=== PATIENT | female | born 1980 | race Caucasian/White ===

== ENCOUNTER → 2019-03-03 | Outpatient (CLI) | payer BC | LOC: LAB FS 08:18 | PROVIDERS: ATTEND Obstetrics & Gynecology | DX: Z34.90 Encounter for supervision of normal pregnancy, unspecified, unspecified trimester (principal); Z3A.00 Weeks of gestation of pregnancy not specified | CPT/HCPCS: 36415; 84702 ==

== ENCOUNTER → 2019-03-05 | Outpatient (CLI) | payer BC ==
[2019-03-05 14:13] LABS: BASOPHILS % (AUTO) 1 % (0-10); EOSINOPHILS % (AUTO) 2 % (0-10); HEMATOCRIT 42 % (35-52); HEMOGLOBIN 13.5 G/DL (11.5-16.0); LYMPHOCYTES % (AUTO) 38 % (12-44); MEAN CORPUSCULAR HEMOGLOBIN 29 PG (25-34); MEAN CORPUSCULAR HGB CONC 33 G/DL (32-36); MEAN CORPUSCULAR VOLUME 90 FL (80-99); MEAN PLATELET VOLUME 10.2 FL (7.4-10.4); MONOCYTES % (AUTO) 5 % (0-12); NEUTROPHILS % (AUTO) 54 % (42-75); PLATELET COUNT 283 10^3/uL (130-400); RED CELL DISTRIBUTION WIDTH 12.9 % (10.0-14.5); WHITE BLOOD COUNT 11.1 10^3/uL (4.3-11.0)
[2019-03-05 14:14] LABS: BASOPHILS # (AUTO) 0.1 10^3/uL (0.0-0.1); EOSINOPHILS # (AUTO) 0.2 10^3/uL (0.0-0.3); LYMPHOCYTES # (AUTO) 4.2 X 10^3 (1.0-4.0); MONOCYTES # (AUTO) 0.6 X 10^3 (0.0-1.0)
== END ==
LOC: LAB FS 13:51
PROVIDERS: ATTEND Family Medicine
DX: O03.9 Complete or unspecified spontaneous abortion without complication (principal); Z3A.00 Weeks of gestation of pregnancy not specified
CPT/HCPCS: 36415; 85025; 86900; 86901

== ENCOUNTER → 2019-03-05 | Outpatient (CLI) | payer BC | LOC: LAB FS 12:21 | PROVIDERS: ATTEND Obstetrics & Gynecology | DX: Z34.90 Encounter for supervision of normal pregnancy, unspecified, unspecified trimester (principal); Z3A.00 Weeks of gestation of pregnancy not specified | CPT/HCPCS: 36415; 84702 ==

== ENCOUNTER 2019-12-01 13:48 | Inpatient (IN) | payer BC ==
[~2019-12-01] VITALS: Ht 170.2 cm; Wt 132.4 kg
[2019-12-01] VITALS (49 sets, daily range): BP systolic 88–133; BP diastolic 51–73
--- NOTE | 2019-12-01 13:50 | NUR ---
Arrived to unit ambulates self for induction of labor. Wt obtained and to room 320. Gowned and urine sample obtained. To bed and oriented to room, call light and surroundings. bed controls and call light reviewed. plan of care reviewed with pt.
[2019-12-01] MEDS ORDERED: CATHETER FLUSH 10 ML SYR IV SCH (14:00)
[2019-12-01] MEDS ORDERED: OXYTOCIN PRE-MIX DRIP 500 ML IV ONE (14:29)
[2019-12-01] MEDS ORDERED: AMPICILLIN FOR IV USE 2,000 MG in WATER (STERILE) FOR INJECTION 14.8 ML IV ONE (14:30)
--- NOTE | 2019-12-01 14:30 | NUR ---
Pt was suppose to deliver in [place] 12/01, but [place] was unable to do this elective induction. Dr Kuo made arrangements to be induced here in [place] today.Having a boy that she will breast feed and have circumcised. Was planning on using Dr Langford as pulmonary physician for after hospitalization. Last son born 12 yrs ago. Mother at bedside, at home - had hand surgery.
[2019-12-01] MEDS ORDERED: OXYTOCIN PRE-MIX DRIP 500 ML IV SCH (14:32)
[2019-12-01 14:36] LABS: BASOPHILS % (AUTO) 0 % (0-10); EOSINOPHILS % (AUTO) 0 % (0-10); HEMATOCRIT 35 % (35-52); HEMOGLOBIN 11.9 G/DL (11.5-16.0); LYMPHOCYTES # (AUTO) 2.5 X 10^3 (1.0-4.0); LYMPHOCYTES % (AUTO) 21 % (12-44); MEAN CORPUSCULAR HEMOGLOBIN 30 PG (25-34); MEAN CORPUSCULAR HGB CONC 34 G/DL (32-36); MEAN CORPUSCULAR VOLUME 88 FL (80-99); MEAN PLATELET VOLUME 11.5 FL (7.4-10.4); MONOCYTES # (AUTO) 0.6 X 10^3 (0.0-1.0); MONOCYTES % (AUTO) 5 % (0-12); NEUTROPHILS # (AUTO) 8.7 X 10^3 (1.8-7.8); NEUTROPHILS % (AUTO) 74 % (42-75); PLATELET COUNT 195 10^3/uL (130-400); WHITE BLOOD COUNT 11.9 10^3/uL (4.3-11.0)
[2019-12-01] MEDS: D5 LR IV SOLUTION 1,000 ML IV SCH ×2 (14:42→22:33)
[2019-12-01] MEDS ORDERED: LACTATED RINGERS 1,000 ML IV SCH (15:15)
[2019-12-01] MEDS ORDERED: FOLI0.4T2 PO (15:23)
[2019-12-01] MEDS ORDERED: PREN1TAB19 PO (15:23)
[2019-12-01] MEDS ORDERED: fentaNYL 2 mcg/ml BUPIVA 0.125 100 ML ONE (15:31)
--- NOTE | 2019-12-01 15:38 | NUR ---
Bill Bradford STOVE TENDER notified per phone of pt's request for epidural
[2019-12-01] MEDS ORDERED: fentaNYL INJECTION 100 MCG/2 ML AMP ONE (16:06)
[2019-12-01] MEDS: AMPICILLIN FOR IV USE 1,000 MG in WATER (STERILE) FOR INJECTION 7.4 ML IV SCH ×2 (18:56→22:33)
--- NOTE | 2019-12-01 21:38 | History & Physical-OB/GYN ---
History of Present Illness History of Present Illness Reason for visit/HPI Ms. Agrawal, A2 at 39 weeks, presents to the hospital for Pitocin Induction of Labor Date of Admission Dec 01, 2019 at 13:48 Date Seen by a Provider: Dec 01, 2019 Time Seen by a Provider: 21:10 I consulted on this patient on 12/01/19 21:32 Attending Physician Jordan Kuo DO Admitting Physician Jordan Kuo DO Consult Allergies and Home Medications Allergies Coded Allergies: No Known Drug Allergies (Unverified , 12/01/19) Home Medications Folic Acid 0.4 Mg Tablet, 0.4 MG PO DAILY, (Reported) Vit/Iron Fumarate/FA 1 Each Tablet, 1 EACH PO DAILY, (Reported) Patient Home Medication List Home Medication List Reviewed: Yes Past [id number] Hx Patient Social History Marrital Status: Number of Children: 1 Number of living children: 1 Employed/Student: employed Alcohol Use: Denies Use Recreational Drug Use: No Smoking Status: Never a Smoker Physical Abuse Screen: No Sexual Abuse: No Recent Foreign Travel: No Contact w/other who traveled: No Recent Infectious Disease Expo: No Surgeries Yes Abdominal (Gastric Sleeve), Adenoidectomy, Bladder Surgery, Gallbladder, Tonsillectomy Respiratory No Cardiovascular No Neurological No Reproductive System : Yes Expected Date of Delivery: Dec 08, 2019 Hx : 4 Hx Para: 1 Hx Total # of Abortions (Spona: 2 Hx Reproductive Disorders: No Sexually Transmitted Disease: No HIV/AIDS: No Genitourinary Yes Musculoskeletal No Endocrine History of Endocrine Disorders: Yes (Obesity) HEENT History of HEENT Disorders: No Cancer No Psychosocial Behavioral Health Disorders: Anxiety Family Medical History Family Hx: Patient reports no known family medical history. Review of Systems Constitutional: see HPI Physical Exam Physical Exam Vital Signs Vital Signs Date Time Temp Pulse Resp B/P (MAP) Pulse Ox O2 Delivery O2 Flow Rate FiO2 12/01/19 21:10 67 101/56 (71) 98 Room Air 12/01/19 20:55 63 106/61 (76) 98 Room Air 12/01/19 20:40 72 99/54 (69) 98 Room Air 12/01/19 20:25 61 102/54 (70) 98 Room Air 12/01/19 20:10 72 97/55 (69) 97 Room Air 12/01/19 19:55 56 96/54 (68) 97 Room Air 12/01/19 19:40 63 99/54 (69) 97 Room Air 12/01/19 19:25 65 88/51 (63) 99 Room Air 12/01/19 19:10 36.6 60 102/57 (72) 98 Room Air 12/01/19 19:00 64 107/64 (78) 98 12/01/19 18:45 60 106/57 (73) 98 Room Air 12/01/19 18:30 66 95/52 (66) 97 Room Air 12/01/19 18:15 73 113/65 (81) 97 Room Air 12/01/19 18:00 67 109/63 (78) 98 Room Air 12/01/19 17:45 66 112/53 (72) 96 Room Air 12/01/19 17:30 68 121/55 (77) 98 12/01/19 17:15 84 109/66 (80) 98 Room Air 12/01/19 17:10 73 109/60 (76) 98 Room Air 12/01/19 17:05 78 108/59 (75) 98 Room Air 12/01/19 17:00 67 109/57 (74) 98 Room Air 12/01/19 16:58 68 95/54 (68) 98 12/01/19 16:53 76 133/61 (85) 12/01/19 16:50 76 125/60 (81) 12/01/19 16:46 68 130/68 (88) 99 12/01/19 16:43 80 20 127/72 (90) 99 12/01/19 16:40 72 127/69 (88) 99 12/01/19 16:38 75 130/70 (90) 100 Room Air 12/01/19 16:35 70 122/70 (87) Room Air 12/01/19 16:33 76 119/73 (88) 100 Room Air 12/01/19 16:30 66 113/67 (82) 12/01/19 16:26 64 20 122/68 (86) 100 Room Air 12/01/19 16:22 71 123/71 (88) 100 Room Air 12/01/19 16:06 72 116/63 (80) 99 Room Air 12/01/19 16:00 65 115/58 (77) 99 Room Air 12/01/19 15:45 64 116/58 (77) Room Air 12/01/19 15:30 56 101/58 (72) Room Air 12/01/19 15:15 65 16 109/55 (73) Room Air 12/01/19 14:05 37.0 78 18 97 Room Air 12/01/19 14:05 37.0 77 16 121/72 (88) 98 Room Air Capillary Refill : Less Than 3 Seconds Labs Laboratory Tests 12/01/19 14:20: White Blood Count 11.9H, Red Blood Count 3.93L, Hemoglobin 11.9, Hematocrit 35, Mean Corpuscular Volume 88, Mean Corpuscular Hemoglobin 30, Mean Corpuscular Hemoglobin Concent 34, Red Cell Distribution Width 12.9, Platelet Count 195, Mean Platelet Volume 11.5H, Neutrophils (%) (Auto) 74, Lymphocytes (%) (Auto) 21, Monocytes (%) (Auto) 5, Eosinophils (%) (Auto) 0, Basophils (%) (Auto) 0, Neutrophils # (Auto) 8.7H, Lymphocytes # (Auto) 2.5, Monocytes # (Auto) 0.6, Eosinophils # (Auto) 0.0, Basophils # (Auto) 0.0 General Appearance: No Apparent Distress, WD/WN Respiratory: Lungs Clear, Normal Breath Sounds, No Respiratory Distress Cardiovascular: Regular Rate, Rhythm, No Murmur Abdominal: normal bowel sounds, non tender Labia: WNL Vagina: WNL Cervix: WNL Cervix OS: open Uterus: WNL, Enlarged (Gravid) Extremity: Normal Inspection, Non Tender, No Calf Tenderness Assessment/Plan Assessment and Plan Assessment: Intrauterine at 39 weeks 2. GBS Positive 3. Advanced Maternal Age Plan: Pitocin Induction of Labor. Ampicillin for GBS. AROM. Epidural for antepartum pain management. Vaginal delivery expected Admission Diagnosis Admission Status: Inpatient Order (span 2 midnights) Reason for Inpatient Admission: Pitocin Induction of Labor Clinical Quality Measures DVT/VTE Risk/Contraindication: Risk Factor Score Per Nursin RFS Level Per Nursing on Admit: 1=Low/No VTE PPX JORDAN KUO DO Dec 01, 2019 21:38
[2019-12-02] VITALS (22 sets, daily range): BP systolic 96–128; BP diastolic 51–75
[2019-12-02] MEDS ORDERED: fentaNYL 2 mcg/ml BUPIVA 0.125 100 ML ONE (00:25)
[2019-12-02] MEDS: AMPICILLIN FOR IV USE 1,000 MG in WATER (STERILE) FOR INJECTION 7.4 ML IV SCH (02:39)
--- NOTE | 2019-12-02 02:57 | NUR ---
cord clamped by dr roman cut by family. 030 spontaneous vaginal delivery of intact placenta by dr roman. pitocin increased to 999ml/hr to finish current bag hanging. placenta taken to lab. [address] roman of 2nd degree tear with 3.0 vicryl. [id number] roman performing fundal massage. new chucks and vpad to perineum after pericare performed by dr roman. assisted out of stirrups. epidural off. 031 new gown and repositioned to high fowlers. 0315 epidural catheter removed by this Rn. tip intact. 0319 fundal massage by this RN. U/1 moderate clot expressed. moderate flow. continuing to monitor. 0321 new bag of pitocin hung see eMAR.
[2019-12-02] MEDS ORDERED: OXYTOCIN PRE-MIX DRIP 500 ML IV SCH (03:20)
[2019-12-02] MEDS ORDERED: MEASLES,MUMPS,RUBELLA 1 EA INJ SQ ONE (03:30)
[2019-12-02] MEDS ORDERED: DIBUCAINE (NUPERCAINAL) 1% OINT 30 GM TOP PRN (03:30)
[2019-12-02] MEDS ORDERED: BENZOCAINE/MENTHOL (DERMOPLAST) 60 ML CAN TP PRN (03:30)
[2019-12-02] MEDS ORDERED: TETANUS,DIPTH,PERTUSS P/F (BOOSTRIX) 0.5 ML VIAL IM ONE (03:30)
[2019-12-02] MEDS ORDERED: WITCH HAZEL(TUCKS) 40 EA JAR TOP PRN (03:30)
--- NOTE | 2019-12-02 03:30 | NUR ---
sandwich tray given. denies pain or need. continuing to monitor. 0350 request assistance with . ffu/0.
--- NOTE | 2019-12-02 03:31 | OB Labor & Delivery Record ---
Vag Delivery Note Vag Delivery Note Date of Delivery: 12/02/19 Preoperative Diagnosis: Idalia Agrawal is a (37 /Para 4 / 1, Gestational Age (wks)39 2/7 weeks with [GBS Positive and Advanced Maternal Age] Postoperative Diagnosis: Same Surgeon: SIMEON MASON Rail Car Repairman: [None] Anesthesia: [Epidural] Delivery Type: [Normal Spontaneous Vaginal Delivery with Second Degree Perineal Laceration and Standard Repair] Findings: [] Viable [Male] , apgars [9, 9], weight [8 lbs 5 oz] Lacerations: Second degree perineal laceration Intact placenta with 3 vessel cord. No nuchal cord, body cord or shoulder dystocia Estimated Blood Loss: [300] ml Complications: None Condition: Stable Description of Procedure: The patient is a 39 year old female who presented [Pitocin Induction of Labor]. She was admitted and informed consent was obtained. Her labor course was unremarkable. She progressed to complete dilatation and began to push. She was then set up for delivery. The 's head was delivered atraumatically in the [SILAS] position. The shoulders and remainder of the infant's body were then delivered without difficulty. Upon delivery, the head was held below the level of the perineum and the mouth and nares were bulb suctioned. The cord was doubly clamped and cut and the infant was handed off to the pediatric staff. An intact placenta with 3-vessel cord delivered via Geov[place] and there was found to be minimal bleeding.~ Vigorous fundal massage was performed and the fundus was found to be firm. IV oxytocin was given. Examination of the vagina and perineum revealed a [second degree perineal] laceration repaired in the usual fashion with 3-0 vicryl suture. Following the repair, sponge, instrument and needle counts were correct. Mom and baby were both in stable condition in the labor suite. Vitals - Labs Vital Signs - I&O Vital Signs Date Time Temp Pulse Resp B/P (MAP) Pulse Ox O2 Delivery O2 Flow Rate FiO2 12/02/19 00:40 54 108/60 (76) 98 Room Air 12/02/19 00:25 62 101/59 (73) 97 Room Air 12/02/19 00:10 70 116/64 (81) 96 Room Air 12/01/19 23:55 63 106/57 (73) 97 Room Air 9/9/20 23:40 60 104/56 (72) 97 Room Air 9/9/20 23:25 58 104/63 (77) 97 Room Air 9/9/20 23:10 60 107/62 (77) 97 Room Air 9/9/20 22:55 52 103/59 (74) 98 Room Air 9/9/20 22:40 66 107/58 (74) 99 Room Air 9/9/20 22:25 36.6 63 111/64 (80) 97 Room Air 9/9/20 22:10 66 103/60 (74) 97 Room Air 9/9/20 21:55 61 115/57 (76) 98 Room Air 9/9/20 21:40 67 101/57 (72) 98 Room Air 9/9/20 21:25 61 108/58 (75) 98 Room Air /9/20 21:10 67 101/56 (71) 98 Room Air /9/20 20:55 63 106/61 (76) 98 Room Air /9/20 20:40 72 99/54 (69) 98 Room Air 11/30/20 20:25 61 102/54 (70) 98 Room Air /9/20 20:10 72 97/55 (69) 97 Room Air /9/20 19:55 56 96/54 (68) 97 Room Air 11/30/20 19:40 63 99/54 (69) 97 Room Air /9/20 19:25 65 88/51 (63) 99 Room Air //20 19:10 36.6 60 102/57 (72) 98 Room Air 9/20 19:00 64 107/64 (78) 98 9/9/20 18:45 60 106/57 (73) 98 Room Air 9/9/20 18:30 66 95/52 (66) 97 Room Air 9/9/20 18:15 73 113/65 (81) 97 Room Air 9/9/20 18:00 67 109/63 (78) 98 Room Air 9/9/20 17:45 66 112/53 (72) 96 Room Air 9/9/20 17:30 68 121/55 (77) 98 9/9/20 17:15 84 109/66 (80) 98 Room Air 9/9/20 17:10 73 109/60 (76) 98 Room Air 9/9/20 17:05 78 108/59 (75) 98 Room Air 12/01/19 17:00 67 109/57 (74) 98 Room Air 12/01/19 16:58 68 95/54 (68) 98 12/01/19 16:53 76 133/61 (85) 12/01/19 16:50 76 125/60 (81) 12/01/19 16:46 68 130/68 (88) 99 12/01/19 16:43 80 20 127/72 (90) 99 12/01/19 16:40 72 127/69 (88) 99 12/01/19 16:38 75 130/70 (90) 100 Room Air 12/01/19 16:35 70 122/70 (87) Room Air 12/01/19 16:33 76 119/73 (88) 100 Room Air 12/01/19 16:30 66 113/67 (82) 12/01/19 16:26 64 20 122/68 (86) 100 Room Air 12/01/19 16:22 71 123/71 (88) 100 Room Air 12/01/19 16:06 72 116/63 (80) 99 Room Air 12/01/19 16:00 65 115/58 (77) 99 Room Air 12/01/19 15:45 64 116/58 (77) Room Air 12/01/19 15:30 56 101/58 (72) Room Air 12/01/19 15:15 65 16 109/55 (73) Room Air 12/01/19 14:05 37.0 78 18 97 Room Air 12/01/19 14:05 37.0 77 16 121/72 (88) 98 Room Air I & O 12/02/19 07:00 Intake Total 1014.8 ml Balance 1014.8 ml Labs Laboratory Tests 12/01/19 14:20: White Blood Count 11.9H, Red Blood Count 3.93L, Hemoglobin 11.9, Hematocrit 35, Mean Corpuscular Volume 88, Mean Corpuscular Hemoglobin 30, Mean Corpuscular Hemoglobin Concent 34, Red Cell Distribution Width 12.9, Platelet Count 195, Mean Platelet Volume 11.5H, Neutrophils (%) (Auto) 74, Lymphocytes (%) (Auto) 21, Monocytes (%) (Auto) 5, Eosinophils (%) (Auto) 0, Basophils (%) (Auto) 0, Neutrophils # (Auto) 8.7H, Lymphocytes # (Auto) 2.5, Monocytes # (Auto) 0.6, Eosinophils # (Auto) 0.0, Basophils # (Auto) 0.0 SIMEON MASON DO Dec 02, 2019 03:31
[2019-12-02] MEDS: IBUPROFEN 800 MG (MOTRIN) TAB PO SCH ×3 (04:45→22:41)
[2019-12-02] MEDS: ACETAMINOPHEN 500 MG TAB (TYLENOL) PO SCH ×3 (04:45→16:59)
[2019-12-02] MEDS ORDERED: CATHETER FLUSH 10 ML SYR IV SCH (06:00)
[2019-12-02] MEDS: PRENATAL VITAMIN 1 EA TAB PO SCH (07:50)
[2019-12-02] MEDS: DOCUSATE SODIUM 100 MG (COLACE) CAP PO SCH ×2 (07:50→21:07)
--- NOTE | 2019-12-02 13:00 | NUR ---
Pt complains of coccyx pain especially with sitting. States pain pills only last about 1 hour.
--- NOTE | 2019-12-02 14:03 | Anesthesia-Regional Post-Op ---
Regional Patient Condition Mental Status: Alert, Oriented x3 Circulation: Same as Pre-Op Headache: Absent Sensation: Full Recovery Motor Block: Absent Post Op Complications Complications None Follow Up Care/Instructions Patient Instructions None needed. Anesthesia/Patient Condition Patient is doing well, no complaints, stable vital signs, no apparent adverse anesthesia problems. GLENN TRUJILLO DO Dec 02, 2019 14:03
--- NOTE | 2019-12-02 17:07 | NUR ---
Pt resting on side due to continued coccyx pain.
[2019-12-03 00:35] VITALS: BP 94/54
[2019-12-03] MEDS: ACETAMINOPHEN 500 MG TAB (TYLENOL) PO SCH ×2 (00:35→07:58)
[2019-12-03 04:27] VITALS: BP 136/86
[2019-12-03 05:50] LABS: BASOPHILS % (AUTO) 0 % (0-10); EOSINOPHILS # (AUTO) 0.1 10^3/uL (0.0-0.3); EOSINOPHILS % (AUTO) 1 % (0-10); HEMATOCRIT 32 % (35-52); HEMOGLOBIN 10.8 G/DL (11.5-16.0); LYMPHOCYTES % (AUTO) 37 % (12-44); MEAN CORPUSCULAR HEMOGLOBIN 30 PG (25-34); MEAN CORPUSCULAR HGB CONC 34 G/DL (32-36); MEAN CORPUSCULAR VOLUME 89 FL (80-99); MEAN PLATELET VOLUME 11.7 FL (7.4-10.4); MONOCYTES # (AUTO) 0.5 X 10^3 (0.0-1.0); MONOCYTES % (AUTO) 6 % (0-12); NEUTROPHILS # (AUTO) 4.6 X 10^3 (1.8-7.8); NEUTROPHILS % (AUTO) 56 % (42-75); PLATELET COUNT 161 10^3/uL (130-400); WHITE BLOOD COUNT 8.2 10^3/uL (4.3-11.0)
[2019-12-03] MEDS ORDERED: IBUP-1780 PO (06:34)
[2019-12-03] MEDS ORDERED: OXYC5TAB96 PO (06:34)
[2019-12-03] MEDS ORDERED: ACET-93 PO (06:34)
[2019-12-03] MEDS ORDERED: DCS100C PO (06:34)
--- NOTE | 2019-12-03 06:40 | Discharge Summary ---
Diagnosis/Chief Complaint Date of Admission Dec 01, 2019 at 13:48 Date of Discharge December 03, 2019 Discharge Date: Dec 03, 2019 Discharge Time: 09:00 Admission Diagnosis Admission Diagnosis Intrauterine at 39 2/7 weeks 2. GBS Positive 3. Advanced Maternal Age Discharge Diagnosis Intrauterine at 39 2/7 weeks--delivered 2. GBS Positive 3. Advanced Maternal Age Reason Hospital Visit Ms. Agrawal, A2 at 39 weeks, presents to the hospital for Pitocin Induction of Labor Discharge Summary Hospital Course Was the Problem List Reviewed?: Yes Hospital Course Ms. Agrawal, 39 2/7 weeks, was admitted for Pitocin Induction of Labor. She received an epidural for pain management and IV antibiotics for GBS prophylaxis. I artificially ruptured her membranes. She progressed to complete and after a short course of pushing, delivered a healthy viable . , she as started on oral pain medications and other comfort measures were instituted. Her vital signs remained stable throughout the duration of her hospitalization. I will discharge her with instructions, prescriptions, and a follow up appointment. Labs Laboratory Tests 12/01/19 14:20: White Blood Count 11.9H, Red Blood Count 3.93L, Mean Platelet Volume 11.5H, Neutrophils # (Auto) 8.7H 12/03/19 05:25: Red Blood Count 3.57L, Mean Platelet Volume 11.7H, Hemoglobin 10.8L, Hematocrit 32L Procedures None. Discharge Physical Examination Allergies: Coded Allergies: No Known Drug Allergies (Unverified , 12/01/19) Vitals & I&Os Vital Signs Date Time Temp Pulse Resp B/P (MAP) Pulse Ox O2 Delivery O2 Flow Rate FiO2 12/03/19 04:27 36.5 73 18 136/86 (103) 97 Room Air General Appearance: Alert, Oriented X3, Cooperative HEENT: Atraumatic Respiratory: Clear to Auscultation, Normal Air Movement Cardiovascular: Regular Rate, No Murmurs Abdominal: Normal Bowel Sounds, Soft, No Tenderness Extremities: No Clubbing, No Cyanosis Skin: No Rashes Neuro: Normal Gait, Normal Speech Discharge Home Medications Reviewed and agree with Discharge Medication list on patient's Discharge Instruction sheet Instructions to Patient/Family Please see electronic discharge instructions given to patient. Clinical Quality Measures DVT/VTE Risk/Contraindication: Risk Factor Score Per Nursin RFS Level Per Nursing on Admit: 1=Low/No VTE PPX SEALS,SIMEON E DO Dec 03, 2019 06:40
[2019-12-03] MEDS: IBUPROFEN 800 MG (MOTRIN) TAB PO SCH (06:43)
[2019-12-03 07:53] VITALS: BP 135/81
[2019-12-03] MEDS: PRENATAL VITAMIN 1 EA TAB PO SCH (07:56)
[2019-12-03] MEDS: DOCUSATE SODIUM 100 MG (COLACE) CAP PO SCH (07:56)
--- NOTE | 2019-12-03 13:26 | NUR ---
Discharge instructions explained to pt with copy provided to pt along with prescriptions. Pt knows to make follow up with provider, as provider is changing offices. RN offered to make appt with [facility] and pt declined. Pt verbalizes understanding of all instructions and signs to verify.
--- NOTE | 2019-12-03 13:40 | NUR ---
Pt taken off unit via wheelchair per RN accompanied by S.O. and infant along with all personal belongings. To private vehicle. No s/s of distress noted.
== END 2019-12-03 13:40 | disposition home or self-care (01) | DRG 807 ==
LOC: LDRP 13:48
PROVIDERS: ADMIT Obstetrics & Gynecology; ATTEND Obstetrics & Gynecology
PROC: 10E0XZZ Delivery of Products of Conception, External Approach (ICD-10-PCS; principal; 2019-12-01)
PROC: 0KQM0ZZ Repair Perineum Muscle, Open Approach (ICD-10-PCS; 2019-12-01)
PROC: 3E033VJ Introduction of Other Hormone into Peripheral Vein, Percutaneous Approach (ICD-10-PCS; 2019-12-01)
DX: O99.824 Streptococcus B carrier state complicating childbirth (principal); Z37.0 Single live birth; O70.1 Second degree perineal laceration during delivery; O99.344 Other mental disorders complicating childbirth; F41.9 Anxiety disorder, unspecified; Z3A.39 39 weeks gestation of pregnancy
CPT/HCPCS: 36415; 85025; 86850; 86900; 86901; 90715